=== PATIENT | female | born 1960 | race Caucasian/White ===

== ENCOUNTER 2017-01-08 11:07 | Emergency (ER) | payer BC ==
[2017-01-08 11:18] VITALS: BP 126/76
--- NOTE | 2017-01-08 12:10 | ED Physician Documentation ---
History of Present Illness - Stated complaint Stated Complaint: RIB INJ - Chief complaint Chief Complaint: General - History obtained from History obtained from: Patient - History of Present Illness Timing: Other (Fell 4 days ago while paddleboarding, hit anterior L ribs on board wioth persistent pain there not relieved by tylenol. Some cough as well. 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 - Present Medications Home Medications: Ambulatory Orders Medication Instructions Recorded Confirmed HYDROcod/ACETAM 5/325 [[place] 5/325] 1 - 2 ea PO Q6H PRN #20 tablet 01/08/17 - Allergies Allergies/Adverse Reactions: Allergies Allergy/AdvReac Type Severity Reaction Status Date / Time latex Allergy Unknown Verified 01/08/17 11:18 - Social History Does the pt smoke?: Yes Smoking Status: Current every day smoker Does the pt drink ETOH?: Yes Does the pt have substance abuse?: No PD ED PE NORMAL - Vitals Vital signs reviewed: Yes - General General: Alert and oriented X 3, No acute distress - Neck Neck: Supple, no meningeal sign, No bony TTP - Cardiac Cardiac: RRR, No murmur - Respiratory Respiratory: No respiratory distress, Clear bilaterally, Other (Tender about ribs 6, anterior axillary line on the left. No abdominal tenderness.) - Back Back: No spinal TTP - Neuro Neuro: Alert and oriented X 3, Normal speech - Psych Psych: Normal mood, Normal affect Results - Vitals Vitals: Vital Signs - 24 hr 01/08/17 11:14 Temperature 36.6 C Heart Rate 80 Respiratory 20 Rate Blood Pressure 126/76 O2 Saturation 100 Oxygen O2 Source Room air - Rads (name of study) L ribs and chest Radiology: EMP read contemporaneously (I think I see two rib fractures, the radiologist comments on 1. There is no pneumothorax.) Departure - Departure Disposition: 01 Home, Self Care Clinical Impression: Multiple fractures of ribs, left side, initial encounter for closed fracture Qualifiers: Encounter type: initial encounter Qualified Code(s): S22.42XA - Multiple fractures of ribs, left side, initial encounter for closed fracture Condition: Good Record reviewed to determine appropriate education?: Yes Instructions: ED Fx Rib Prescriptions: HYDROcod/ACETAM 5/325 [[place] 5/325] 1 - 2 ea PO Q6H PRN #20 tablet PRN Reason: Pain Comments: Call your doctor to arrange a follow-up appointment, make the next available appointment. In the interim, return anytime if worse or if new symptoms develop. Do not drink or drive while taking narcotic pain medication. Note that many narcotic pain relievers also contain Tylenol/acetaminophen. Please ensure that your total dose of acetaminophen from all sources does not exceed 3 g (3000 mg) per day. You may get constipated while on this medication. Take a stool softener such as Colace twice a day while you are on it. Also add an musn-xhs-nflwegt laxative such as senna or MiraLAX on any day that you do not have a bowel movement. If you received a narcotic pain medication or sedative while in the emergency department, do not drive for the next 24 hours. Forms: Activity restrictions Discharge Date/Time: 01/08/17 13:17
--- NOTE | 2017-01-08 13:45 | XRAY Preliminary Report ---
Exam: XR Ribs w/PA Chest LT IMPRESSION: Minimally displaced fracture of the anterior aspect left seventh rib. [facility] SITE ID: [id number]
--- NOTE | 2017-01-08 13:48 | XRAY Report ---
EXAM: LEFT RIB RADIOGRAPHY EXAM DATE: 01/08/2017 12:53 PM. CLINICAL HISTORY: Rib inj. COMPARISON: None. TECHNIQUE: 1 view of the chest and 2 views of the ribs. FINDINGS: Bones: Minimally displaced fracture of the anterior aspect of the left seventh rib. Lungs: No focal opacities. No pneumothorax. No pleural effusions. Mediastinum: Heart and mediastinal contours are unremarkable. Other: None. IMPRESSION: Minimally displaced fracture of the anterior aspect left seventh rib. [facility] Referring Provider Line: [phone] SITE ID: [id number]
== END 2017-01-08 13:17 | disposition home or self-care (01) ==
LOC: ED 11:07
DX: S22.42XA Multiple fractures of ribs, left side, initial encounter for closed fracture (principal); F17.200 Nicotine dependence, unspecified, uncomplicated; V93.38XA Fall on board other unpowered watercraft, initial encounter; Y93.19 Activity, other involving water and watercraft
CPT/HCPCS: 99283

== ENCOUNTER 2018-09-02 16:42 | Emergency (ER) | payer BC ==
--- NOTE | 2018-09-02 17:49 | ED Physician Documentation ---
History of Present Illness - Stated complaint Stated Complaint: TOOTH PX - Chief complaint Chief Complaint: Heent - History obtained from History obtained from: Patient - Additonal information Additional information: Patient is a previously healthy 58-year-old female presenting with left lower tooth pain for the last week and a half.Patient denies known trauma or inciting incident, but states she has not been to the dentist for several years. Patient does have missing teeth, dental caries, multiple fillings. Patient feels that her filling is no longer fitting appropriately and causing her sensitivity and discomfort. Patient states that this pain radiates towards her jaw and other face. Patient denies facial swelling or erythema, difficulty swallowing, gum changes including bleeding, discharge from her mouth, fever, or other concerns. No improving or worsening factors noted to her symptoms. Patient has tried ibuprofen at home. 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 - Present Medications Home Medications: Ambulatory Orders Medication Instructions Recorded Confirmed Chlorhexidine Gluconate [Peridex] 15 ml MM TID 10 Days #1 bottle 09/02/18 - Allergies Allergies/Adverse Reactions: Allergies Allergy/AdvReac Type Severity Reaction Status Date / Time latex Allergy Unknown Verified 09/02/18 16:57 - Social History Does the pt smoke?: Yes Smoking Status: Current every day smoker Does the pt drink ETOH?: Yes Does the pt have substance abuse?: No PD ED PE NORMAL - General General: Alert and oriented X 3, No acute distress, Well developed/nourished - HEENT HEENT: Atraumatic. No: Dentition benign (Missing teeth and dental caries throughout with multiple fillings. Tenderness at base of tooth #1819 without, swelling, erythema, or drainage. No facial swelling or erythema noted. No trismus.) - Respiratory Respiratory: No respiratory distress - Derm Derm: Normal color, Warm and dry, No rash - Extremities Extremities: No deformity - Neuro Neuro: Alert and oriented X 3, No motor deficit, No sensory deficit - Psych Psych: Normal mood, Normal affect Results - Vitals Vitals: Vital Signs - 24 hr 09/02/18 16:54 Temperature 37.2 C Heart Rate 94 Respiratory 18 Rate Blood Pressure 174/70 H O2 Saturation 100 Oxygen O2 Source Room air PD MEDICAL DECISION MAKING - ED course Complexity details: considered differential, d/w patient ED course: Most concerning for sensitivity due to improper tooth filling. Patient reports that she has not been to the dentist for several years and is aware that this feeling is no longer really fitting. Patient denies other known inciting incident or trauma. Feel that general dental caries and pericoronitis could also be contributing to her discomfort. Do not find evidence of dental abscess or other facial abscess. Discussed options including oral medications, supportive cares, and need for dentistry follow-up. Patient reports that she has a dentist appointment scheduled for next week. Patient received Toradol in ED to help with discomfort. Patient otherwise voiced understanding and is comfortable with discharge plan. Departure - Departure Disposition: 01 Home, Self Care Clinical Impression: Pain due to dental caries Condition: Good Instructions: ED Tooth Pain Follow-Up: your,dentist [Other] - Within 3 Days Prescriptions: Chlorhexidine Gluconate [Peridex] 15 ml MM TID 10 Days #1 bottle Comments: Please use mouthwash as prescribed to help relieve discomfort and prevent infection. Also recommend good oral hygiene otherwise including brushing and flossing. May also try oral gel and other topicals to help relieve sensitivity.May use ibuprofen/Tylenol as well to help relieve inflammation and discomfort. Please follow-up with dentist as scheduled next week or try to seeIf you can get a sooner appointment. Return to ED immediately if expands worsening pain, fever, pus drainage from the mouth, swelling or redness to her face, or have other concerns.
[2018-09-02] MEDS ORDERED: KETOROLAC 60 MG/2 ML VIAL IM STA (17:54)
[2018-09-02 18:13] VITALS: BP 179/78
== END 2018-09-02 18:13 | disposition home or self-care (01) ==
LOC: ED 16:42
DX: K02.9 Dental caries, unspecified (principal); K08.89 Other specified disorders of teeth and supporting structures; F17.200 Nicotine dependence, unspecified, uncomplicated
CPT/HCPCS: 96372; 99283

== ENCOUNTER 2020-08-03 14:30 | Outpatient (CLI) | payer BC ==
[2020-08-03 21:36] LABS: BACTERIAL VAGINOSIS DNA POSITIVE (NEGATIVE); CANDIDA GLABRATA DNA NEGATIVE (NEGATIVE); CANDIDA GROUP DNA NEGATIVE (NEGATIVE); CANDIDA KRUSEI DNA NEGATIVE (NEGATIVE); TRICHOMONAS VAGINALIS DNA NEGATIVE (NEGATIVE)
== END 2020-08-03 23:59 | disposition home or self-care (01) ==
LOC: LAB 14:30
PROVIDERS: ATTEND Obstetrics & Gynecology
DX: N89.8 Other specified noninflammatory disorders of vagina (principal)
CPT/HCPCS: 87661; 87801

== ENCOUNTER 2020-08-11 08:55 | Outpatient (CLI) | payer BC ==
--- NOTE | 2020-08-12 13:27 | Mammography Report ---
BILATERAL DIGITAL SCREENING MAMMOGRAM 3D/2D: 08/11/2020 CLINICAL: Routine screening. Comparison is made to exams dated: 09/17/2013 mammogram, 09/12/2010 mammogram, and 09/06/2011 mammogram - [facility]. There are scattered fibroglandular elements in both breasts. No significant masses, calcifications, or other findings are seen in either breast. There has been no significant interval change. IMPRESSION: NEGATIVE There is no mammographic evidence of malignancy. A 1 year screening mammogram is recommended. This exam was interpreted at Station ID: [id number]. NOTE: For mammograms, a report in lay terms will be sent to the patient. Approximately 15% of breast malignancies will not be visualized mammographically. In the management of a palpable breast mass, a negative mammogram must not discourage biopsy of a clinically suspicious lesion. Electronically Signed By: Clint Somers M.D., jr/garret:08/11/2020 09:28:47 ACR BI-RADS Category 1: Negative 3341F PARENCHYMAL PATTERN: (A) - The breast(s) demonstrate(s) scattered fibroglandular densities. BI-RADS CATEGORY: (1) - 1 RECOMMENDATION: (ANNUAL) - Recommend routine annual screening mammography. [id number] 1 year screening LATERALITY: (B)
== END 2020-08-11 08:56 | disposition home or self-care (01) ==
LOC: DI.S 08:55
PROVIDERS: ATTEND Registered Nurse
DX: Z12.31 Encounter for screening mammogram for malignant neoplasm of breast (principal)

== ENCOUNTER 2020-08-17 13:54 | Outpatient (CLI) | payer BC ==
--- NOTE | 2020-08-17 17:38 | Ultrasound Report ---
PROCEDURE: Pelvic w/Transvaginal INDICATIONS: POSTMENOPAUSAL BLEEDING TECHNIQUE: Real-time scanning was performed of the pelvic organs, with image documentation. Additional endovagi nal scanning was necessary due to incomplete visualization of the adnexal and endometrial structures by transabdominal scanning. COMPARISON: None available. FINDINGS: No pathologic free abdominal or pelvic fluid. Uterus: Uterus is normal in size at 10.4 x 5.0 x 6.4 cm. The endometrium measures 2.7 mm in combine d thickness. Trace endometrial fluid present. There are 3 intramural fibroids, largest measuring up t o 2.6 cm. Ovaries: Left ovary not visualized. The right ovary is grossly normal measuring 2.7 x 1.4 x 1.2 cm w ith volume estimated at 2.3 cc. No adnexal masses seen. IMPRESSION: 1. Endometrial complex within normal limits in thickness measuring 2.7 mm and small amount of endomet rial fluid is present. Short-term follow-up pelvic ultrasound in 6 weeks is recommended to assess for interval resolution. 2. 3 intramural fibroids, largest measuring up to 2.6 cm. 3. Normal right ovary and the left ovary is not clearly seen. Reviewed by: BARBY Bar on 08/17/2020 5:37 PM PDT Approved by: Rogelio Judge MD on 08/17/2020 5:37 PM PDT Station ID: [id number]
== END 2020-08-17 13:55 | disposition home or self-care (01) ==
LOC: DI 13:54
PROVIDERS: ATTEND Obstetrics & Gynecology
DX: N95.0 Postmenopausal bleeding (principal); D25.1 Intramural leiomyoma of uterus; R93.89 Abnormal findings on diagnostic imaging of other specified body structures

== ENCOUNTER 2020-09-28 06:50 | Outpatient (CLI) | payer BC ==
--- NOTE | 2020-09-28 19:07 | Ultrasound Report ---
PROCEDURE: Pelvic w/Transvaginal INDICATIONS: POSTMENOPAUSAL VAGINAL BLEEDING TECHNIQUE: Real-time scanning was performed of the pelvic organs, with image documentation. Additional endovagi nal scanning was necessary due to incomplete visualization of the adnexal and endometrial structures by transabdominal scanning. COMPARISON: Pelvic ultrasound 08/17/2020 FINDINGS: No pathologic free abdominal or pelvic fluid. Uterus: Uterus is normal in size at 10.1 x 4.3 x 5.7 cm., Volume 129.5 cc The endometrium measures 1.9 mm in combined thickness. There is a mid fundal focus of intramural heterogeneous echogenicity measuring 2.6 x 2.2 x 2.7 cm com pared to 2.6 x 2.4 x 2.6 cm. Similar mid posterior intramural focus is identified measuring 2.5 x 2.1 x 1.7 cm compared to 2.5 x 2.2 x 2.1 cm. Similar posterior inferior focus is identified measuring 3. 1 x 2.7 x 2.6 cm. This was not identified on prior exam. Ovaries: Right ovaries not visualized. Left ovary measures 2.3 x 2.0 x 1.6 cm, volume 3.8 cc. IMPRESSION: 1. Multiple fibroids relatively stable compared to prior exam, noting a new lead visualized posterior inferior fibroid. Uterus is overall enlarged. 2. Endometrial complex is within normal limits. Reviewed by: Mayda Diaz MD on 09/28/2020 6:06 PM ESTEBAN Approved by: Mayda Diaz MD on 09/28/2020 6:06 PM ESETBAN Station ID: [id number]
== END 2020-09-28 06:51 | disposition home or self-care (01) ==
LOC: DI 06:50
PROVIDERS: ATTEND Obstetrics & Gynecology
DX: D25.1 Intramural leiomyoma of uterus (principal); N85.2 Hypertrophy of uterus

== ENCOUNTER 2022-11-29 08:46 | Outpatient (CLI) | payer BC ==
--- NOTE | 2022-11-30 09:26 | Mammography Report ---
BILATERAL DIGITAL SCREENING MAMMOGRAM 3D/2D: 11/29/2022 CLINICAL: Routine screening. Comparison is made to exams dated: 08/11/2020 mammogram - [facility] and 09/17/2013 mammogram - [facility]. There are scattered areas of fibroglandular density in both breasts (category b / 25%-50% glandular t issue). No significant masses, calcifications, or other findings are seen in either breast. There has been no significant interval change. IMPRESSION: NEGATIVE There is no mammographic evidence of malignancy. A 1 year screening mammogram is recommended. Based on the Tyrer Cuzick model (a risk assessment model) the patients lifetime risk is 6.6% and her 10 year risk is 2.6%. According to the ACR, ACS, and NCCN guidelines, an annual breast MRI exam amanda g with mammogram is recommended if the patients lifetime risk is 20% or greater. This exam was interpreted at Station ID: [id number]. NOTE: For mammograms, a report in lay terms will be sent to the patient. Approximately 15% of breast malignancies will not be visualized mammographically. In the management of a palpable breast mass, a negative mammogram must not discourage biopsy of a clinically suspicious lesion. Electronically Signed By: Navi pedroza/garret:11/29/2022 10:33:16 letter sent: No_Letter ACR BI-RADS Category 1: Negative 3341F PARENCHYMAL PATTERN: (A) - The breast(s) demonstrate(s) scattered fibroglandular densities. BI-RADS CATEGORY: (1) - 1 Mammogram [id number] 1 year screening LATERALITY: (B)
== END 2022-11-29 08:47 | disposition home or self-care (01) ==
LOC: DI.S 08:46
PROVIDERS: ATTEND Registered Nurse
DX: Z12.31 Encounter for screening mammogram for malignant neoplasm of breast (principal)

== ENCOUNTER 2023-01-03 08:00 | Outpatient (CLI) | payer BC ==
--- NOTE | 2023-01-04 09:08 | XRAY Report ---
PROCEDURE: Ankle 3 View LT INDICATIONS: LEFT ANKLE PAIN TECHNIQUE: 3 views of the ankle were acquired. COMPARISON: None. FINDINGS: Bones: Small osseous fragment is seen superior to the anterior process of talus, suspicious for avul marcie fracture. No dislocations. Ankle mortise is normally aligned. No suspicious bony lesions. Soft tissues: No tibiotalar joint effusion. Achilles tendon appears normal. Soft tissue swelling. IMPRESSION: 1. Suspect an avulsion fracture involving the anterior process of talus. Reviewed by: Rao Manning MD on 01/04/2023 9:07 AM PDT Approved by: Rao Manning MD on 01/04/2023 9:07 AM PDT Station ID: [id number]
--- NOTE | 2023-01-04 09:11 | XRAY Report ---
PROCEDURE: Foot 3 View LT INDICATIONS: PAIN IN LEFT FOOT TECHNIQUE: 3 views of the foot were acquired. COMPARISON: X-ray left ankle. FINDINGS: Bones: There is a small osseous fragment superolateral to the anterior process of talus, suspicious for avulsion fracture. No suspicious bony lesions. Soft tissues: No suspicious soft tissue calcifications or masses. IMPRESSION: Avulsion fracture involving the anterior process of talus. Reviewed by: Rao Manning MD on 01/04/2023 9:10 AM PDT Approved by: Rao Manning MD on 01/04/2023 9:10 AM PDT Station ID: [id number]
== END 2023-01-03 23:59 | disposition home or self-care (01) ==
LOC: DI.S 08:00
PROVIDERS: ATTEND Physician Assistant
DX: S92.192A Other fracture of left talus, initial encounter for closed fracture (principal)

== ENCOUNTER 2023-05-01 09:48 | Outpatient (CLI) | payer BC ==
--- NOTE | 2023-05-01 20:13 | XRAY Report ---
PROCEDURE: Chest 2 View X-Ray INDICATIONS: CHEST PAIN,LEFT TECHNIQUE: 2 views of the chest were acquired. COMPARISON: Chest radiograph 01/08/2017. FINDINGS: Surgical changes and devices: None. Lungs and pleura: No pleural effusions or pneumothorax. Lungs are clear. Mediastinum: Mediastinal contours appear normal. Heart size is normal. Bones and chest wall: No suspicious bony lesions. Overlying soft tissues appear unremarkable. IMPRESSION: No acute cardiopulmonary process. Reviewed by: Percy Roman MD on 05/01/2023 8:12 PM PST Approved by: Percy Roman MD on 05/01/2023 8:12 PM PST Station ID: [id number]
== END 2023-05-01 09:49 | disposition home or self-care (01) ==
LOC: DI.S 09:48
PROVIDERS: ATTEND Registered Nurse
DX: R07.89 Other chest pain (principal)
CPT/HCPCS: 36415; 84484

== ENCOUNTER 2023-06-22 11:24 | Emergency (ER) | payer BC ==
--- NOTE | 2023-06-22 11:54 | ED Physician Documentation ---
PD HPI HEAD INJURY - Stated complaint Stated Complaint: FLUID IN EAR - Chief complaint Chief Complaint: Trauma Hd/Nk - Additional information Additional information: 63-year-old female presents emergency department for concerns of possible CSF leak. Patient reports that she had a ground-level fall her dog pulled her while she was walking in the rain 2 to 3 days ago she fell onto her face no loss of consciousness she is not any blood thinners. She was seen at the walk-in clinic and no imaging was done given the mechanism of injury and her past medical history. She woke up this morning with right ear fullness, she is a Q-tip for her right ear and felt like she noticed relief with drainage of fluid. She followed up with her primary care provider today who ultimately sent her to the emergency department for further evaluation of a possible CSF leak. She is neurologically intact she has not noticed any fluid in the ear since this happened no nasal draining no headache. 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 - Present Medications Home Medications: Ambulatory Orders Medication Instructions Recorded Confirmed Chlorhexidine Gluconate [Peridex] 15 ml MM TID 10 Days #1 bottle 09/02/18 - Allergies Allergies/Adverse Reactions: Allergies Allergy/AdvReac Type Severity Reaction Status Date / Time latex Allergy Unknown Verified 06/22/23 11:38 - Social History Does the pt smoke?: Yes Smoking Status: Current every day smoker Does the pt drink ETOH?: Yes Does the pt have substance abuse?: No - POLST Patient has POLST: No PD ED PE NORMAL - Vitals Vital signs reviewed: Yes - General General: Alert and oriented X 3, No acute distress, Well developed/nourished - HEENT HEENT: PERRL, EOMI (Right ear: no visible drainage, normal external ear canal, difficulty fully visualizing TM due to cerumen, TM does appear to be intact,), Ears normal - Neck Neck: No bony TTP - Cardiac Cardiac: RRR, No murmur - Respiratory Respiratory: No respiratory distress, Clear bilaterally - Back Back: No spinal TTP - Derm Derm: Normal color, Warm and dry - Neuro Neuro: Alert and oriented X 3, 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, No motor deficit, No sensory deficit, Normal speech Eye Opening: Spontaneous Motor: Obeys Commands Verbal: Oriented GCS Score: 15 - Psych Psych: Normal mood Results - Vitals Vitals: Vital Signs - 24 hr 06/22/23 06/22/23 11:34 13:57 Temperature 36.4 C L Heart Rate 63 68 Respiratory 20 20 Rate Blood Pressure 180/75 H 163/78 H O2 Saturation 100 98 Oxygen O2 Source Room air - Rads (name of study) Head CT Relevant Findings:: Final report received, EMP independent interpretation of test (No acute intracranial abnormalities.) PD Medical Decision Making - ED course ED course: 63 yo female here for concerns of CSF leak. Head CT was complete and no obvious acute findings at this time no CSF leaks, no headache, no neurological deficits. Patient was told to continue monitor symptoms at home signs and symptoms watch out for and follow-up with her primary care provider. I am not seeing any fluid coming out of her ear during this ER visit, Patient is safe for discharge at this time strict return precautions given all questions answered. Departure - Departure Disposition: 01 Home, Self Care Clinical Impression: Head trauma Qualifiers: Encounter type: initial encounter Qualified Code(s): S09.90XA - Unspecified injury of head, initial encounter Condition: Good Instructions: ED Head Injury Closed Comments: Thank you for trusting us with your care we have completed a CT scan for further evaluation of possible CSF leak. CT scan did not reveal CSF leak or any other acute abnormalities. Go home and continue to monitor your symptoms please come back to the emergency department if you are starting to notice continuous oozing out of your ear, vision changes, weakness on one side your body, severe headache, confusion, or any other concerning symptoms. Please follow up with your primary care provider estimated. Forms: PCP List Discharge Date/Time: 06/22/23 13:58
--- NOTE | 2023-06-22 13:11 | CT Report ---
PROCEDURE: Head WO INDICATIONS: head injury, r/o CSF leak TECHNIQUE: Noncontrast 4.5 mm thick angled axial sections acquired from the foramen magnum to the vertex. For r adiation dose reduction, the following was used: automated exposure control, adjustment of mA and/or kV according to patient size. COMPARISON: None. FINDINGS: Image quality: Excellent. CSF spaces: Basal cisterns are patent. No extra-axial fluid collections. Ventricles are normal in size and shape. Brain: No midline shift. No intracranial masses or hemorrhage. Woody-white matter interface is norm al. Skull and face: Calvarium and visualized facial bones are intact, without suspicious lesions. Sinuses: Visualized sinuses and mastoids are clear. IMPRESSION: No acute intracranial pathology. Noncontrast CT scan of the head cannot exclude CSF leak. Reviewed by: Suzette Laird MD, PhD on 06/22/2023 1:09 PM PST Approved by: Suzette Laird MD, PhD on 06/22/2023 1:09 PM RUST Station ID: [id number]
[2023-06-22 14:02] VITALS: BP 163/78; O2SAT 98
== END 2023-06-22 13:58 | disposition home or self-care (01) ==
LOC: ED 11:24
DX: S09.90XA Unspecified injury of head, initial encounter (principal); W18.39XA Other fall on same level, initial encounter; Y93.K1 Activity, walking an animal; F17.200 Nicotine dependence, unspecified, uncomplicated
CPT/HCPCS: 99283; 99284

== ENCOUNTER 2023-09-19 09:16 | Outpatient (CLI) | payer BC | END 2023-09-19 09:17 | disposition home or self-care (01) | LOC: LAB.S 09:16 | PROVIDERS: ATTEND Orthopaedic Surgery Adult Reconstructive Orthopaedic Surgery | DX: Z96.652 Presence of left artificial knee joint (principal); Z96.651 Presence of right artificial knee joint | CPT/HCPCS: 36415; 86140 ==